=== PATIENT | female | born 2000 | race Caucasian/White ===

== ENCOUNTER 2020-05-02 23:30 | Inpatient (IN) | payer OTHER, SELFPAY ==
--- NOTE | 2020-05-02 23:30 | LDADM ---
This patient, Josseline Verduzco, was admitted to Labor/Delivery/Recovery 106 on 05/02/20 at 23:30. Plans for labor, pain management and were discussed with patient. Patient/family oriented to hospital policies and general routines including ID bracelet, bed and alarms, visiting hours, pain management, procedures, bathroom and other care routines, personal items, smoking policy, room service/diet and guest tray routines, security routines, and visiting hours. Patient/Family are encouraged to report perceived risks to care and to ask questions if they do not understand what they are told or what they should do. See OBIX for further documentation.
[2020-05-02 23:42] VITALS: TEMP 36.5
[2020-05-03] VITALS (84 sets, daily range): BP systolic 114–147; BP diastolic 47–95; PULSE 56–170; RESP 16; TEMP 36.5–37.1; O2SAT 96–100; BMI 30.7
[2020-05-03 00:43] LABS: Basophils Percent Auto 0.2 % (0.2-1.2); Eosinophils Absolute Auto 0.1 K/mm3 (0-0.3); Eosinophils Percent Auto 0.8 % (0-4.4); Hematocrit 32.4 % (37.0-47.0); Immature Granulocyte Absolute 0.05 K/mm3 (0.00-0.031); Immature Granulocyte Percent A 0.5 % (0-0.5); Lymphocytes Absolute Auto 1.62 K/mm3 (0.9-3.2); Lymphocytes Percent Auto 15.6 % (18.3-44.2); Mean Corpuscular Hemoglobin 30.1 pg (26-34); Mean Corpuscular Volume 88.8 fl (80-100); Mean Platelet Volume 10.6 fl (7.4-10.4); Monocytes Absolute Auto 0.8 K/mm3 (0.1-0.6); Monocytes Percent Auto 7.4 % (2.6-8.5); Neutrophils Absolute Auto 7.9 K/mm3 (1.3-6.7); Neutrophils Percent Auto 75.5 % (45.5-73.1); Platelet Count Result 331 k/mm3 (150-375); Red Blood Count 3.65 M/mm3 (4.2-5.4); Red Cell Distribution Width 12.3 % (11.5-14.5); White Blood Count 10.4 K/mm3 (4.5-10.0)
[2020-05-03] MEDS: LACTATED RINGERS 1,000 ML 125 ML IV CONT ×2 (05:15→07:26)
[2020-05-03] MEDS: OXYTOCIN 30 UNITS/NS 500 ML 30 UNITS/500 ML BAG IV CONT (05:16)
[2020-05-03 07:43] LABS: Rapid Plasma Reagin Non-Reactive (NonReactive)
--- NOTE | 2020-05-03 07:58 | WPDOBADMIT ---
Obstetrics - Admit Note Admission Note: 19 y/o G1 here in spontaneous labor. VSS Contractions regular FHR category 1 Cervix 9/-1 AROM moderate amount of clear odorless fluid Comfortable with epidural Anticipate record reviewed. No pertinent additions to the history and/or any subsequent changes in the physical findings that are not consistent with the expected course of the were found. Additions to the history and/or subsequent changes in the physical findings follow. None.
--- NOTE | 2020-05-03 11:20 | PM.OBPRVD ---
OB - Delivery Note Procedure Delivery date: 05/03/20 Delivery monitor: external FHT and external uterine Route of delivery: Laceration description: Vaginal - 1st Degree Delivery repair: vicryl Estimated blood loss (mL): 247 Anesthesia type: Epidural Complications: Mother and baby in stable condition. Cord clamped at 2 minutes. Gasses collected and handed off to staff. [place] Baby Date of : 05/03/20 Time of : 10:53 Weeks of gestation at delivery: 39 Infant gender: Female Weight (pounds): 8 Weight (ounces): 6 presentation: vertex position: Left Occiput Anterior Placenta delivery description: Spontaneous score one minute: 9 score five minutes: 9
[2020-05-03] MEDS: OXYTOCIN 30 UNITS/NS 500 ML 30 UNITS/500 ML BAG 125 UNITS IV CONT (12:06)
--- NOTE | 2020-05-03 14:15 | PC.NURSE ---
PT arrived on unit via wheelchair accompanied by spouse and and taken to room 292. PT oriented to room and surrounding area. PT introductions made and plan of care discussed per post , pain management, bottle feeding, daily care activities. Welcome packet reviewed and discussed . PT verbalized understanding of such care.
[2020-05-03] MEDS: WITCH HAZEL 40 PADS 1 PAD TOPICAL (15:55)
[2020-05-03] MEDS: BENZOCAINE 20% AER SPR (*SP) 56 GM CAN 1 SPRAY TOPICAL (15:55)
[2020-05-03] MEDS: IBUPROFEN 600 MG TABLET PO (15:56)
[2020-05-04] MEDS: ACETAMINOPHEN 325 MG TABLET 650 MG PO (05:11)
[2020-05-04 05:38] LABS: Hematocrit 31.2 % (37.0-47.0); Hemoglobin 10.7 g/dL (12.0-15.0)
--- NOTE | 2020-05-04 07:08 | P.PNOB_ITS ---
OB - PN: Subj Subjective Date/time seen: 05/04/20 07:08 Patient comments: no complaints baby status: doing well OB - PN: Obj Data Labs CBC & Chem 7: 05/04/20 05:00 Labs: Laboratory Results - last 24 hr 05/03/20 05/04/20 00:35 05:00 Hgb 10.7 L Hct 31.2 L RPR Non-reactive OB - PN A/P Plan day: 1 Plan: routine care Time Spent With Patient Time: Total time spent is greater than 50% in coordination of care (as documented) at patient's floor/unit and/or counseling patient: Review of Systems Review of Systems: All systems reviewed & are unremarkable except as noted in HPI and below Exam Const: General: comfortable Psych: Appearance: grossly normal Affect: normal affect Attitude: c ooperative Judgement: Good judgement present (Psych)
[2020-05-04 08:30] VITALS: BP 126/76; PULSE 62; RESP 16; TEMP 36.4; O2SAT 99
[2020-05-04 09:00] VITALS: PULSE 62; RESP 16; O2SAT 99
--- NOTE | 2020-05-04 09:02 | WPDANLDPN2 ---
Anes-Prog Note L&D Date/Time: 05/04/20 09:02 Comfortable throughout: labor Neuraxial method: epidural Neuro status: Neuro function grossly intact. Cardiovascular status: normal Vital Signs: Last Vital Signs Temp 36.5 C 05/03/20 19:30 Pulse 65 05/03/20 19:30 Resp 16 05/03/20 19:30 BP 125/70 05/03/20 19:30 Pulse Ox 99 05/03/20 19:30 I/O: Intake & Output 05/03/20 05/04/20 05/04/20 23:59 07:59 15:59 Intake Total 500 Balance 500 Post-procedural complaints: none Patient feedback: Patient satisfied with anesthetic care.
[2020-05-04] MEDS: DOCUSATE SODIUM 100 MG CAPSULE PO ×2 (09:15→17:36)
[2020-05-04] MEDS: MULTIVIT/MIN/PREN/FOL AC/IRON TABLET 1 TAB PO (09:15)
[2020-05-04] MEDS: IBUPROFEN 600 MG TABLET PO ×3 (09:15→17:36)
[2020-05-04] MEDS: TETANUS,DIPHTHERIA,AC PERTUSSIS ADULT (0.5 ML) BOOSTRIX IM (09:17)
[2020-05-04 19:40] VITALS: BP 143/80; PULSE 65; RESP 16; TEMP 36.7; O2SAT 100
--- NOTE | 2020-05-04 20:00 | PC.NURSE ---
Patient viewed the discharge video Mother & Baby Care, The First Two Weeks . Patient was given the opportunity and encouraged to ask questions. Patient verbalized understanding of information shared and has been given the mother/baby guide for home reference.
[2020-05-05] MEDS: IBUPROFEN 600 MG TABLET PO (04:51)
[2020-05-05 08:15] VITALS: BP 118/63; PULSE 53; RESP 14; TEMP 36.9; O2SAT 98
[2020-05-05] MEDS: MULTIVIT/MIN/PREN/FOL AC/IRON TABLET 1 TAB PO (08:20)
[2020-05-05] MEDS: DOCUSATE SODIUM 100 MG CAPSULE PO (08:20)
--- NOTE | 2020-05-05 09:51 | PM.OBPNVD ---
OB - PN: Subj Subjective Date/time seen: 05/05/20 09:51 Patient comments: no complaints, pain well controlled and other (Lochia similar to menses) [place] baby status: doing well OB - PN: Obj Data Labs CBC & Chem 7: 05/04/20 05:00 OB - PN A/P Plan day: 2 (s/p vaginal delivery, doing well) Plan: routine care, discharge home and other (Follow up in office in 4 weeks) Time Spent With Patient Time: Total time spent is greater than 50% in coordination of care (as documented) at patient's floor/unit and/or counseling patient: Exam Const: General: no acute distress GI: Inspection: other (Fundus firm and nontender below umbilicus) GI Palp: Yes Soft to palpation and No Tenderness to palpation present (GI) Extrem: General: no edema
[2020-05-07 10:15] VITALS: BP 120/81; PULSE 87; RESP 20; TEMP 36.7
--- NOTE | 2020-05-25 12:07 | PM.OBDSVD ---
DS: Admitting Diagnosis Admitting Diagnosis Admitting Diagnosis: Encounter for supervision of normal , unspecified, third trimester OB - DS: Summary OB Procedures : None OB Procedures Intrapartum: Spontaneous Vag Delivery OB Procedures: : None Time Spent with Patient Time attestation: Total time spent providing and/or coordinating discharge services: Discharge Plan Discharge Consulting providers: Paula Gutierrez ; Criselda Lucio Discharging Clinician: Isa Pitts Patient Disposition: Home, Self-Care Activity: unlimited Diet: regular Discharge Instructions: Education: Mom and Baby Guide Given to: Mother Follow-Up: Call your delivering provider's office for an appointment to be seen in: 4 Weeks [facility]. Appointment Date/Time:Thursday, May 07, 2020 at 10:00 am What to expect at your follow-up visit: Blood Pressure Check Physical Assessment Call [phone] if you are unable to keep your appointment time. BREAST CARE: 1. Wear a snug supportive bra. 2. For engorgement discomfort: Bottle Feeding: A. May apply ice packs EPISIOTOMY/PERINEAL CARE: 1. Until bleeding stops, use your iva bottle after urinating 2. Change your pad frequently throughout the day 3. You may take sitz baths several times a day (fill your bathtub with warm water and soak for 20 minutes.) Do NOT bathe in the water 4. No tub baths until seen by your physician - You may shower ACTIVITY: 1. Rest as much as possible. 2. Do not exercise or lift anything heavier than your baby (such as laundry or other children.) 3. Avoid stairs or driving as much as possible. 4. Do not put anything into the vagina. No douching, tampons, or sexual activity until seen by physician. NOTIFY PHYSICIAN IF YOU HAVE ANY QUESTIONS OR IF ANY OF THE FOLLOWING SYMPTOMS OCCUR: 1. If your perineum becomes red, swollen, or more painful than what you have experienced in the hospital. 2. If your vaginal bleeding becomes foul smelling. 3. If your vaginal bleeding becomes more heavy than a period or if your bleeding changes from pink to bright red. However, you may pass an occasional walnut-sized clot once or twice for the first week . 4. If you experience a sharp, shooting pain in your calves. 5. If you discover a hard, reddened area on your breast or if you experience flu-like symptoms. DIET: 1. Eat regular, well-balanced meals. 2. Drink plenty of fluids daily. Stand Alone Forms: General Discharge Information Follow-up/Referrals: Paula Gutierrez CNM [Certified Nurse Chair Frame Builder] - 4 Weeks Discharge Medications: New ibuprofen 600 mg Tablet 600 mg PO Q6H PRN (Reason: Cramping) Qty: 60 RF: 0 Continued ferrous sulfate 325 mg (65 mg iron) Tablet,Delayed Release (Dr/Ec) 325 mg PO DAILY RF: 0 PNV cmb#[id number]-ferrous fumarate-FA [] 28 mg iron- 800 mcg Tablet 1 tablet PO DAILY RF: 0 Date of admission: 05/02/20 23:30 Primary Care Provider: PHYSICIAN,CABIN SERVICE AGENT Admitting Provider: Rafael Chacon Discharge Date/Time: 05/05/20 13:07 Attending physician on admission: Isa Pitts
== END 2020-05-05 13:07 | disposition home or self-care (01) | DRG 560 ==
LOC: ANHLDR 05-03 00:36 → ANHOB2 05-05 12:01 → ANHLDR 05-07 14:24 → ANHOB2 05-07 14:24
PROVIDERS: Advanced Practice Midwife; Admitting Provider Obstetrics & Gynecology; Visit Provider Obstetrics & Gynecology
DX: O70.0 First degree perineal laceration during delivery (principal); Z37.0 Single live birth; Z3A.39 39 weeks gestation of pregnancy
CPT/HCPCS: 36415; 84112; 85014; 85018; 85025; 86592; 86850; 86900; 86901; 90715; A9270; J2590; J2795; J7120